=== PATIENT | female | born 1980 | race African-American/Black ===

== ENCOUNTER 2017-08-26 16:40 | Emergency (ER) | payer MEDICAID, BC ==
[2017-08-26 17:48] LABS: AUTOMATED NEUTROPHIL # 2.5 TH/MM3 (1.8-7.7); BASOPHIL % 0.7 % (0.0-2.0); EOSINOPHIL # 0.1 TH/MM3 (0-0.4); EOSINOPHIL % 1.9 % (0.0-4.0); HEMATOCRIT 33.8 % (35.0-46.0); HEMO FLAGS DIFF FINAL; HEMOGLOBIN 11.4 GM/DL (11.6-15.3); LYMPH % 49.9 % (9.0-44.0); LYMPHOCYTE # 3.2 TH/MM3 (1.0-4.8); MEAN CELL VOLUME 82.5 FL (80.0-100.0); MEAN CORPUSCULAR HEMOGLOBIN 27.9 PG (27.0-34.0); MEAN CORPUSCULAR HGB CONC 33.8 % (32.0-36.0); MEAN PLATELET VOLUME 10.6 FL (7.0-11.0); MONO % 9.2 % (0.0-8.0); MONOCYTE # 0.6 TH/MM3 (0-0.9); NEUT % 38.3 % (16.0-70.0); PLATELET COUNT 220 TH/MM3 (150-450); RED CELL DISTRIBUTION WIDTH 15.4 % (11.6-17.2); WHITE BLOOD COUNT 6.5 TH/MM3 (4.0-11.0)
[2017-08-26 17:56] LABS: APTT (PATIENT) 21.7 SEC (24.3-30.1)
[2017-08-26 18:15] LABS: ALBUMIN 3.4 GM/DL (3.4-5.0); ALT (GPT) 18 U/L (10-53); ANION GAP 8 MEQ/L (5-15); AST (GOT) 15 U/L (15-37); BICARBONATE 21.9 MEQ/L (21.0-32.0); BLOOD UREA NITROGEN 12 MG/DL (7-18); CALCIUM 8.1 MG/DL (8.5-10.1); CHLORIDE 107 MEQ/L (98-107); CREATININE 0.63 MG/DL (0.50-1.00); GLOMERULAR FILTRATION RATE 108 ML/MIN (>89); GLUCOSE,RANDOM 88 MG/DL (74-106); LIPASE 171 U/L (73-393); MAGNESIUM 1.7 MG/DL (1.5-2.5); POTASSIUM 3.4 MEQ/L (3.5-5.1); SODIUM (NA) 137 MEQ/L (136-145)
[2017-08-26 18:19] LABS: ALKALINE PHOSPHATASE 50 U/L (45-117); CREATINE KINASE 176 U/L (26-192); TOTAL BILIRUBIN ADULT 0.4 MG/DL (0.2-1.0); TOTAL PROTEIN 7.2 GM/DL (6.4-8.2); TROPONIN I LESS THAN 0.02 NG/ML (0.02-0.05)
[2017-08-26 18:32] LABS: CKMB LESS THAN 0.5 NG/ML (0.5-3.6)
[2017-08-26] MEDS: IBUPROFEN 600 MG TAB PO (20:17)
[2017-08-26] MEDS: DIAZEPAM 5 MG TAB PO (22:42)
== END 2017-08-27 00:08 | disposition home or self-care (01) ==
LOC: NEPD 08-27 00:08
DX: R07.89 Other chest pain (principal); M25.512 Pain in left shoulder
CPT/HCPCS: 71046; 80053; 82550; 82552; 83690; 83735; 84484; 84703; 85025; 85610; 85730; 93005; 99285